=== PATIENT | female | born 1940 | race Two or more races ===

== ENCOUNTER 2018-10-08 13:45 | Inpatient (IN) | payer OTHER ==
[~2018-10-08] VITALS: Ht 167.6 cm; Wt 55.8 kg
[2018-10-08] MEDS ORDERED: VYTORIN 10-201 EACH PO (16:08)
[2018-10-08] MEDS ORDERED: CARDIZEM CD180 MG PO (16:08)
[2018-10-08] MEDS ORDERED: VITAMIN D1000 UNI1 PO (16:09)
[2018-10-08] MEDS ORDERED: ALLOPURINOL100 MG PO (16:09)
[2018-10-11] MEDS ORDERED: PEPCID40 MG PO (09:40)
[2018-10-11] MEDS ORDERED: NEURONTIN300 MG PO (09:40)
[2018-10-11] MEDS ORDERED: COLACE100 MG PO (09:40)
== END 2018-10-11 11:44 | DRG 738 ==
LOC: O/R 10-10 05:57 → SURG-SUITE 10-10 05:57 → SURH 10-10 13:45 → OB/GYN 10-10 16:46 → SURH 10-10 17:15 → SURG-SUITE 10-10 17:39
PROVIDERS: Obstetrics & Gynecology Gynecologic Oncology
PROC: 0DBW4ZZ Excision of Peritoneum, Percutaneous Endoscopic Approach (ICD-10-PCS; 2018-10-10)
PROC: 0UT24ZZ Resection of Bilateral Ovaries, Percutaneous Endoscopic Approach (ICD-10-PCS; 2018-10-10)
PROC: 0UT74ZZ Resection of Bilateral Fallopian Tubes, Percutaneous Endoscopic Approach (ICD-10-PCS; 2018-10-10)
PROC: 07BC4ZX Excision of Pelvis Lymphatic, Percutaneous Endoscopic Approach, Diagnostic (ICD-10-PCS; 2018-10-10)
PROC: 0DBU4ZZ Excision of Omentum, Percutaneous Endoscopic Approach (ICD-10-PCS; 2018-10-10)
PROC: 0UT94ZZ Resection of Uterus, Percutaneous Endoscopic Approach (ICD-10-PCS; principal; 2018-10-10 17:15)
DX: C56.2 Malignant neoplasm of left ovary (principal); I13.10 Hypertensive heart and chronic kidney disease without heart failure, with stage 1 through stage 4 chronic kidney disease, or unspecified chronic kidney disease; N18.1 Chronic kidney disease, stage 1; D63.1 Anemia in chronic kidney disease; E78.49 Other hyperlipidemia; Z92.21 Personal history of antineoplastic chemotherapy; D64.89 Other specified anemias